=== PATIENT | female | born 1965 | race Caucasian/White ===

== ENCOUNTER → 2018-04-18 | Outpatient (CLI) | payer MEDICARE ==
--- NOTE | 2018-04-18 08:38 | XR ---
EXAMINATION TYPE: XR cervical spine comp DATE OF EXAM: 04/18/2018 COMPARISON: NONE HISTORY: None TECHNIQUE: Four views are submitted. FINDINGS: The odontoid is intact. There are no compression deformities. The prevertebral soft tissue structur es are within normal limits. Hypertrophic degenerative changes at C3/C4 and C5-C6. Loss the normal c ervical lordosis. Foraminal encroachment at multiple levels. IMPRESSION: 1. Multilevel degenerative disc disease. MRI follow-up recommended.
== END | disposition home or self-care (01) ==
LOC: RADXRMAIN 07:40
PROVIDERS: ATTEND Nurse Practitioner Family
DX: M50.31 Other cervical disc degeneration, high cervical region (principal)
CPT/HCPCS: 72050

== ENCOUNTER → 2018-04-26 | Outpatient (CLI) | payer MEDICARE ==
--- NOTE | 2018-04-29 09:30 | MM ---
Reason for exam: screening (asymptomatic). Last mammogram was performed 1 year and 3 months ago. History: Patient is postmenopausal. Family history of breast cancer in mother and breast cancer in maternal grandmother. Benign excisional biopsy of the left breast, March 05, 2000. Physical Findings: A clinical breast exam by your physician is recommended on an annual basis and results should be correlated with mammographic findings. MG 3D Screening Mammo W/Cad Bilateral CC and MLO view(s) were taken. Prior study comparison: February 05, 2017, bilateral MG screening mammo w CAD. August 06, 2015, bilateral MG screening mammo w CAD. The breast tissue is heterogeneously dense. This may lower the sensitivity of mammography. There is a stable right retroareolar mass in the upper outer quadrant. No suspicious abnormality. No significant changes when compared with prior studies. ASSESSMENT: Negative, BI-RAD 1 RECOMMENDATION: Routine screening mammogram of both breasts in 1 year. Manage on a clinical basis with regard to chronic left nipple pain. Diagnostic exam could be per performed in clinically indicated.
== END ==
LOC: RADMAMWWP 13:41
PROVIDERS: ATTEND Family Medicine
DX: Z12.31 Encounter for screening mammogram for malignant neoplasm of breast (principal)
CPT/HCPCS: 77063; 77067

== ENCOUNTER → 2018-05-03 | Outpatient (CLI) | payer MEDICARE ==
--- NOTE | 2018-05-03 08:46 | MR ---
EXAMINATION TYPE: MR cervical spine wo con DATE OF EXAM: 05/03/2018 COMPARISON: 09/03/1999 HISTORY: Neck/jaw pain, headaches, weakness in fingers TECHNIQUE: Multiplanar, multisequence images of the cervical spine were acquired. C2-C3: No evidence for degenerative disc disease. No disc bulge/herniation or protrusion. No Canal stenosis. Foramina are patent bilaterally. C3-C4: There is a moderate broad-based disc bulging or protrusion resulting in compression of thecal sac. Uncovertebral joint hypertrophy is greater on the right resulting in severe right-sided foramina l encroachment and moderate left foraminal encroachment. Findings are similar to the prior exam. Dege nerative disc disease C4-C5: Degenerative disc disease with broad-based disc bulging. Uncovertebral j oint hypertrophy greater on the left facet arthropathy. Mild right foraminal encroachment and moderat e left foraminal encroachment C5-C6: Degenerative disc disease with broad-based disc protrusion. Uncovertebral joint hypertrophy no jossy bilaterally with severe left-sided foraminal encroachment and moderate to severe right-sided fora maximiliano encroachment which may be slightly progressed. Effacement of thecal sac and central canal steno sis noted. C6-C7: No evidence for degenerative disc disease. No disc bulge/herniation or protrusion. No Canal stenosis. Foramina are patent bilaterally. C7-T1: No evidence for degenerative disc disease. No disc bulge/herniation or protrusion. No Canal stenosis. Foramina are patent bilaterally. Cervical segments are intact. There is normal alignment. Cervical spinal cord is of normal signal. Craniovertebral junction relationships are within normal limits. Mucous retention cyst within the m axillary sinus. Loss the normal cervical lordosis noted. IMPRESSION: 1. Mild progression of multilevel degenerative disc disease with straightening of the cervical spine and loss of normal cervical lordosis. 2. Disc protrusions at C3-C4, C4-5 and C5-C6 result in significant bilateral foraminal encroachment a s discussed above. Central stenosis at C5-C6 noted.
== END | disposition home or self-care (01) ==
LOC: RADMRIMAIN 08:08
PROVIDERS: ATTEND Nurse Practitioner Family
DX: M48.02 Spinal stenosis, cervical region (principal); M50.21 Other cervical disc displacement, high cervical region; M50.31 Other cervical disc degeneration, high cervical region
CPT/HCPCS: 72141

== ENCOUNTER 2018-05-16 06:43 | Day surgery (SDC) | payer MEDICARE ==
[2018-05-14 15:57] VITALS: BMI 36.3
[~2018-05-16 06:43] MED LIST: LACTATED RINGERS 1,000 ML IV SCH
[2018-05-16 07:17] VITALS: TEMP 97.2
[2018-05-16] MEDS ORDERED: LIDOCAINE 1% INJ 10MG/ML (20 ML MDV) ONE (07:39)
[2018-05-16] MEDS ORDERED: PROPOFOL 10 MG/ML 20 ML VIAL IV ONE (07:39)
--- NOTE | 2018-05-16 07:46 | P.GSHP ---
History of Present Illness H&P Date: 05/16/18 Chief Complaint: Screening colonoscopy This is a 52-year-old female who presents today for screening colonoscopy. Patient denies a significant GI complaints. Her last colonoscopy was several years ago. She says she had polyps at that time. Past Medical History Past Medical History: COPD, Fibromyalgia, Musculoskeletal Disorder, Skin Disorder, Thyroid Disorder Additional Past Medical History / Comment(s): DDD, NECK PAIN. HX COLON POLYPS. GRANULOMA ANNULARA, ITCHY RAISED SPOTS LOWER LEGS. History of Any Multi-Drug Resistant Organisms: None Reported Past Surgical History: Back Surgery, Breast Surgery, Hysterectomy Additional Past Surgical History / Comment(s): ANAL FISSURE SX. COLONOSCOPY. LT BREAST LUMPECTOMY-BENIGN Past Anesthesia/Blood Transfusion Reactions: No Reported Reaction Smoking Status: Current some day smoker - Past Family History Father Family Medical History: Cancer Additional Family Medical History / Comment(s): LUNG Mother Family Medical History: Cancer Additional Family Medical History / Comment(s): BREAST Medications and Allergies Home Medications Medication Instructions Recorded Confirmed Type Albuterol Inhaler [Ventolin Hfa 1 - 2 puff INHALATION Q6HR PRN 11/15/15 05/16/18 History Inhaler] Levothyroxine Sodium [Synthroid] 125 mcg PO DAILY 11/15/15 05/16/18 History Ibuprofen [Motrin] 800 mg PO TID PRN 05/14/18 05/16/18 History Vitamin D3 (Unknown Dose) 1 tab PO DAILY 05/14/18 History Allergies Allergy/AdvReac Type Severity Reaction Status Date / Time barium iodide Allergy Rash/Hives Verified 05/16/18 07:02 barium sulfate Allergy Rash/Hives Verified 05/16/18 07:02 codeine AdvReac Nausea Verified 05/16/18 07:02 Surgical - Exam Vital Signs Temp Pulse Resp BP Pulse Ox 97.2 F L 90 17 134/82 98 05/16/18 07:11 05/16/18 07:11 05/16/18 07:11 05/16/18 07:11 05/16/18 07:11 - General well developed, well nourished, no distress - Eyes PERRL - ENT normal pinna - Neck no masses - Respiratory normal expansion - Cardiovascular Rhythm: regular - Abdomen Abdomen: soft, non tender Assessment and Plan Assessment: We'll perform screening colonoscopy.
--- NOTE | 2018-05-16 08:01 | P.OP ---
Date of Procedure: 05/16/18 Preoperative Diagnosis: Screening colonoscopy Postoperative Diagnosis: Diverticulosis Procedure(s) Performed: Colonoscopy Anesthesia: MAC Surgeon: Easton Sanchez Pathology: none sent Condition: stable Disposition: PACU Description of Procedure: The patient's placed on the endoscopy table in the lateral position. She received IV sedation. Digital rectal exam was performed which revealed no abnormalities. Flexible colonoscope was then placed patient anus and passed throughout the entire colon. The ileocecal valve was visualized. The cecum, ascending and transverse colon appeared normal. In the descending and sigmoid colon there was mild diverticulosis. There was no evidence of diverticulitis. The scope was then brought back the rectum and this appeared normal. Scope was withdrawn for patient.
[2018-05-16 08:18] VITALS: BP 107/65; PULSE 70; RESP 16
== END 2018-05-16 08:35 | disposition home or self-care (01) ==
LOC: ORWHC2ENDO 06:43
PROVIDERS: ATTEND Surgery
DX: Z12.11 Encounter for screening for malignant neoplasm of colon (principal); K57.30 Diverticulosis of large intestine without perforation or abscess without bleeding; J44.9 Chronic obstructive pulmonary disease, unspecified; F17.210 Nicotine dependence, cigarettes, uncomplicated; M79.7 Fibromyalgia; E07.9 Disorder of thyroid, unspecified; Z88.5 Allergy status to narcotic agent; Z86.010 Personal history of colon polyps; Z79.890 Hormone replacement therapy; Z91.048 Other nonmedicinal substance allergy status
CPT/HCPCS: G0105; J2001; J2704

== ENCOUNTER → 2019-04-29 | Outpatient (CLI) | payer MEDICARE ==
--- NOTE | 2019-04-30 09:05 | MM ---
Reason for exam: screening (asymptomatic). Last mammogram was performed 1 year ago. History: Patient is postmenopausal. Family history of breast cancer in mother and breast cancer in maternal grandmother. Benign excisional biopsy of the left breast, March 05, 2000. Took hormonal contraceptives for 15 years. Physical Findings: A clinical breast exam by your physician is recommended on an annual basis and results should be correlated with mammographic findings. MG 3D Screening Mammo W/Cad Bilateral CC and MLO view(s) were taken. Prior study comparison: April 26, 2018, bilateral MG 3d screening mammo w/cad. February 05, 2017, bilateral MG screening mammo w CAD. There are scattered fibroglandular densities. Finding: There is a typically benign circumscribed oval stable mass in the upper outer quadrant, anterior position of the right breast dating back to 2016. No suspicious abnormality. ASSESSMENT: Benign, BI-RAD 2 RECOMMENDATION: Routine screening mammogram of both breasts in 1 year.
== END | disposition home or self-care (01) ==
LOC: RADMAMWWP 09:45
PROVIDERS: ATTEND Family Medicine
DX: Z12.31 Encounter for screening mammogram for malignant neoplasm of breast (principal)
CPT/HCPCS: 77063; 77067

== ENCOUNTER → 2020-06-29 | Outpatient (CLI) | payer MEDICARE ==
--- NOTE | 2020-06-30 10:46 | MM ---
Reason for exam: screening (asymptomatic). Last mammogram was performed 1 year and 2 months ago. History: Patient is postmenopausal. Family history of breast cancer in mother and breast cancer in maternal grandmother. Benign excisional biopsy of the left breast, March 05, 2000. Took hormonal contraceptives for 15 years. Physical Findings: A clinical breast exam by your physician is recommended on an annual basis and results should be correlated with mammographic findings. MG 3D Screening Mammo W/Cad Bilateral CC and MLO view(s) were taken. Prior study comparison: April 29, 2019, bilateral MG 3d screening mammo w/cad. April 26, 2018, bilateral MG 3d screening mammo w/cad. The breast tissue is heterogeneously dense. This may lower the sensitivity of mammography. There are benign appearing round calcifications bilaterally. There is no discrete abnormality. ASSESSMENT: Benign, BI-RAD 2 RECOMMENDATION: Routine screening mammogram of both breasts in 1 year.
== END | disposition home or self-care (01) ==
LOC: RADMAMWWP 14:33
PROVIDERS: ATTEND Family Medicine
DX: Z12.31 Encounter for screening mammogram for malignant neoplasm of breast (principal); Z80.3 Family history of malignant neoplasm of breast; Z78.0 Asymptomatic menopausal state
CPT/HCPCS: 77063; 77067

== ENCOUNTER → 2021-07-26 | Outpatient (CLI) | payer MEDICARE ==
--- NOTE | 2021-07-28 09:54 | MM ---
Reason for Exam: Screening (asymptomatic). Last screening mammogram was performed 12 month(s) ago. Patient History: Menarche at age 12. First Full-Term at age 20. Hysterectomy at age 38. Postmenopausal. Patient used Hormonal Contraceptives for 15 years. 03/05/2000, Benign Excisional Biopsy on the left side. Maternal grandmother had breast cancer at or over age 50. Mother had breast cancer at or over age 50. Risk Values: Graciela 5 year model risk: 2.8%. NCI Lifetime model risk: 17.3%. Prior Study Comparison: 04/26/2018 Bilateral Screening Mammogram, [facility]. 04/29/2019 Bilateral Screening Mammogram, [facility]. 06/29/2020 Bilateral Screening Mammogram, [facility]. Tissue Density: The breast tissue is heterogeneously dense. This may lower the sensitivity of mammography. Findings: Analyzed By CAD. There are few scattered benign-appearing round calcifications redemonstrated throughout both breasts. There is no suspicious group of microcalcifications or new suspicious mass in either breast. Overall Assessment: Benign, BI-RAD 2 Management: Screening Mammogram of both breasts in 1 year. A clinical breast exam by your physician is recommended on an annual basis and results should be correlated with mammographic findings. Electronically signed and approved by: Cristhian Hernandez M.D.
== END | disposition home or self-care (01) ==
LOC: RADMAMWWP 09:37
PROVIDERS: ATTEND Family Medicine
DX: Z12.31 Encounter for screening mammogram for malignant neoplasm of breast (principal); Z78.0 Asymptomatic menopausal state; Z80.3 Family history of malignant neoplasm of breast
CPT/HCPCS: 77063; 77067

== ENCOUNTER → 2022-05-23 | Outpatient (CLI) | payer MEDICARE ==
--- NOTE | 2022-05-23 08:38 | CT ---
EXAMINATION TYPE: CT chest w con DATE OF EXAM: 05/23/2022 COMPARISON: None HISTORY: Chronic bronchitis, chest pain CT DLP: 408.70 mGycm Automated exposure control for dose reduction was used. CONTRAST: CT scan of the chest is performed with IV Contrast, patient injected with 100 ml mL of Isovue 300. FINDINGS: LUNGS: The lungs are grossly clear, there is no concerning parenchymal mass or nodule identified. T here is no pleural effusion or pneumothorax seen. The tracheobronchial tree is patent. MEDIASTINUM: There are no greater than 1 cm hilar or mediastinal lymph nodes. No pericardial effusi on is seen. Thoracic aorta is of normal caliber. The heart is not enlarged. UPPER ABDOMEN: No significant abnormality appreciated. OTHER: No additional significant abnormality is seen. IMPRESSION: No significant abnormality to account for the patient's symptoms.
== END | disposition home or self-care (01) ==
LOC: RADCTMAIN 07:56
PROVIDERS: ATTEND Family Medicine
DX: J42 Unspecified chronic bronchitis (principal)
CPT/HCPCS: 71260; Q9967

== ENCOUNTER → 2022-07-31 | Outpatient (CLI) | payer MEDICARE ==
--- NOTE | 2022-08-01 20:06 | MM ---
Reason for Exam: Screening (asymptomatic). Last mammogram was performed 1 year(s) and 1 month(s) ago. Patient History: Menarche at age 12. First Full-Term at age 20. Hysterectomy at age 38. Postmenopausal. Patient used Hormonal Contraceptives for 15 years. 03/05/2000, Benign Excisional Biopsy on the left side. Maternal grandmother had breast cancer at or over age 50. Maternal grandmother had breast cancer at or over age 50. Mother had breast cancer at or over age 50. Mother had breast cancer at or over age 50. Risk Values: Graciela 5 year model risk: 2.9%. NCI Lifetime model risk: 16.9%. Prior Study Comparison: 02/05/2017 Bilateral Screening Mammogram, [facility]. 04/26/2018 Bilateral Screening Mammogram, [facility]. 04/29/2019 Bilateral Screening Mammogram, [facility]. 06/29/2020 Bilateral Screening Mammogram, [facility]. 07/26/2021 Bilateral MG 3D screening mammo w/cad, [facility]. Tissue Density: There are scattered fibroglandular densities. Findings: Analyzed By CAD. Chronic nodularity anterior right breast. There is no suspicious group of microcalcifications or new suspicious mass in either breast. Overall Assessment: Benign, BI-RAD 2 Management: Screening Mammogram of both breasts in 1 year. . Patient should continue monthly self-breast exams. A clinical breast exam by your physician is recommended on an annual basis. This exam should not preclude additional follow-up of suspicious palpable abnormalities. Note on Graciela scores and lifetime risk: 1. A Graciela score greater than 3% is considered moderate risk. If this is the case, consider specialist referral to assess eligibility for a risk reducing agent. 2. If overall lifetime risk for the development of breast cancer is 20% or higher, the patient may qualify for future screening with alternating mammogram and breast MRI. Electronically signed and approved by: Brock Stock M.D. Radiologist
== END | disposition home or self-care (01) ==
LOC: RADMAMWWP 10:05
PROVIDERS: ATTEND Family Medicine
DX: Z12.31 Encounter for screening mammogram for malignant neoplasm of breast (principal); Z78.0 Asymptomatic menopausal state; Z80.3 Family history of malignant neoplasm of breast
CPT/HCPCS: 77063; 77067

== ENCOUNTER → 2022-09-26 | Outpatient (CLI) | payer MEDICARE ==
--- NOTE | 2022-09-26 13:12 | CA ---
Exercise Stress Test Report Name: Fabiola Owens Exam Date: 09/26/2022 09:05 Exam Location: [place] Stress Ht (in): 66 Wt (lb): 205 BSA: 2.02 Ordering Phys: Charlie Chowdhury MD Referring Phys: SOLA,, Technologist: Richard Hill Age: 57 Gender: F : 1965 Procedure CPT: Indications: R07.9' R00.2 ICD-10 Codes: Patient History: CHEST PAIN, DIFFICULTY IN BREATHING, PALPITATIONS, ANGINA, PRIOR SMOKER (0.75 PPD X 43 YEARS) COPD Medications: LEVOTHYROXINE, ANORO, ALBUTEROL, MOTRIN, VIT E, VIT D, CALCIUM, WOMEN'S ONE A DAY Meds past 24 hrs: Pretest Chest Pain: STRESS TEST Gustavo Protocol Exercise Duration (min:sec): 03:[address] Depressions (mm): Angina Score: Viera Score: Resting HR (bpm): 76 Peak HR (bpm): 145 Resting BP (mmHg): 104 / 83 Peak BP (mmHg): 178 / 84 MPHR: 162 Target HR: 138 % MPHR: 90 METS: 5.6 Total Dose: Peak Dose: Atropine: Double Product: 06557 BP Response: Stress Termination: TARGET HR REACHED/MAX EXERTION Stress Symptoms: DIFFICULTY IN BREATHING Stress Summary: ECG ANALYSIS Resting ECG: Stress ECG: CONCLUSIONS Patient underwent exercise stress EKG with a Gustavo protocol treadmill stress test. Patient exercised into Stage 2 for a total of 3 minutes and 36 seconds reaching a total of 5.6 METS. Patient's maximum heart rate was 145 which represented 89 % age- predicted maximum heart rate. Stress EKG findings: At baseline patient's EKG showed normal sinus rhythm, normal axis, no significant ST or T wave abnormalities. At peak exercise, EKG showed no significant change from baseline. Conclusions: 1. Normal EKG response to exercise without evidence of inducible ischemia. 2. Poor exercise capacity. Dr. Ramy Bush DO (Electronically Signed) Final Date: 26 September 2022 13:10
== END | disposition home or self-care (01) ==
LOC: RADNMMAIN 08:27
PROVIDERS: ATTEND Family Medicine
DX: R07.9 Chest pain, unspecified (principal); R00.2 Palpitations
CPT/HCPCS: 93017

== ENCOUNTER 2023-05-25 08:42 | Day surgery (SDC) | payer MEDICARE ==
[2023-05-22 09:23] VITALS: BMI 33.0
[~2023-05-25 08:42] MED LIST changes: +ALPRAZolam 0.5 MG TAB PO PRN; +ASPIRIN 325 MG TAB PO STA; +HEPARIN SODIUM,PORCINE (1 ML) 2,500 UNIT in SODIUM CHLORIDE 0.9% 250 ML IRRIGATION PRN; +HEPARIN SODIUM,PORCINE 10,000 UNIT in SODIUM CHLORIDE 0.9% 1,000 ML IRRIGATION PRN; -LACTATED RINGERS 1,000 ML IV SCH; +NITROGLYCERIN SL TABS 0.4 MG TAB SUBLINGUAL PRN; +SODIUM CHLORIDE 0.9% 1,000 ML in EMPTY BAG 1 BAG IV SCH
[2023-05-25] MEDS: SODIUM CHLORIDE 0.9% 1,000 ML IV ONE (08:45)
[2023-05-25] MEDS: ALPRAZolam 0.25 MG TAB PO PRN (09:14)
[2023-05-25 09:16] LABS: Basophils # (A) 0.1 k/uL (0-0.2); Basophils % (A) 1 %; Eosinophils # (A) 0.3 k/uL (0-0.7); Eosinophils % (A) 3 %; HCT 41.2 % (34.0-46.0); HGB 13.7 gm/dL (11.4-16.0); Lymphocytes # (A) 3.7 k/uL (1.0-4.8); Lymphocytes % (A) 37 %; MCH 29.4 pg (25.0-35.0); MCHC 33.2 g/dL (31.0-37.0); MCV 88.7 fL (80.0-100.0); Mean Platelet Volume 7.3; Monocytes # (A) 0.5 k/uL (0-1.0); Monocytes % (A) 5 %; Neutrophils % (A) 51 %; Platelet Count 347 k/uL (150-450); RBC 4.64 m/uL (3.80-5.40); RDW 13.2 % (11.5-15.5); WBC 9.8 k/uL (3.8-10.6)
[2023-05-25 09:31] LABS: African American GFR (CKD) >90 (>60 ml/min/1.73 sqM); Anion Gap 8 mmol/L; Blood Urea Nitrogen 16 mg/dL (7-17); Calcium 9.1 mg/dL (8.4-10.2); Carbon Dioxide 22 mmol/L (22-30); Chloride 109 mmol/L (98-107); Glucose 104 mg/dL (74-99); Non-African American GFR(CKD) >90 (>60 ml/min/1.73 sqM); Potassium 4.2 mmol/L (3.5-5.1); Sodium 139 mmol/L (137-145)
[2023-05-25 09:42] VITALS: RESP 18; TEMP 98.1
[2023-05-25] MEDS ORDERED: fentaNYL (PF) 50 MCG/ML 2 ML AMP ONE (10:16)
[2023-05-25] MEDS ORDERED: HEPARIN SODIUM 1,000 UN/ML (10ML VL) ONE (10:16)
[2023-05-25] MEDS: MIDAZOLAM 2 MG/2 ML VIAL IVP ONE (10:30)
[2023-05-25] MEDS: LIDOCAINE 1% INJ 10MG/ML (20 ML MDV) SQ ONE (10:30)
[2023-05-25] MEDS: fentaNYL (PF) 50 MCG/ML 2 ML AMP IVP ONE (10:30)
[2023-05-25] MEDS: VERAPAMIL SYRINGE (5 MG/10 ML) INTRAARTER ONE (10:34)
[2023-05-25] MEDS: HEPARIN SODIUM 1,000 UN/ML (10ML VL) IV ONE (10:38)
[2023-05-25] MEDS: IOPAMIDOL-370 100ML BTL INJ ONE (10:44)
[2023-05-25] MEDS ORDERED: RX INFO: IV CONTRAST WAS GIVEN 1 EACH MISC MISCELLANE PRN (12:06)
--- NOTE | 2023-05-25 12:06 | P.CARDCATH ---
Date of Procedure: 05/25/23 Description of Procedure: DIAGNOSTIC CORONARY ANGIOGRAPHY and LEFT HEART CATH REPORT PROCEDURES PERFORMED: Left heart catheterization Selective coronary angiography Moderate conscious sedation 15 mins [Ultrasound assisted] Right radial access INDICATION: Substernal chest pressure symptoms, history of smoking, positive Lexiscan nuclear stress test showing anteroapical reversible perfusion defect. CONSENT: I have explained the procedural steps of above-mentioned procedures in layman's terms to the patient. I discussed the risks (including but not limited to stroke, emergent vascular or cardiac surgery or ), benefits and alternative therapies for the above-mentioned procedure. I discussed the risks of sedation/analgesia and blood product administration (if indicated). The patient has indicated understanding and acceptance of these risks. Conscious Sedation: Patient's ECG, heart rate, blood pressure, pulse oximetry were monitored throughout the duration of procedure under my direct supervision. 1 mg Versed and [50] mg Fentanyl were used for induction of moderate conscious sedation. Total duration of moderate concious sedation 15 minutes. PROCEDURE: After explaining the risks, benefits and alternatives of the above mentioned procedures in detail to the patient, informed consent was obtained. Patient was taken to the catheterization lab, prepped and draped in usual sterile fashion using universal precuations. Barbow and andreia test were performed to confirm adequate perfusion to fingers. Ultrasound was used to identify the radial artery. 1% lidocaine was infiltrated over the right radial artery. A 6-[place]izen [place] sheath was placed and secured in the right radial artery using modified Seldinger technique. The sheath was flushed and 5 mg verapamil was administered intra-arterially. J tipped wire was advanced under fluoroscopic guidance. Once the wire tip reached aortic root 5500 units of IV heparin was given. Over the wire JR4 diagnostic catheter was advanced. The wire in place the catheter was manipulated to cross the aortic valve and entered into LV under fluoroscopy guidance. The wire was removed and the catheter was flushed. LV pressures were obtained and pullback was performed under fluoroscopy. Catheter was manipulated to selectively engage the right coronary ostium. Right coronary angiography was performed in different angiographic projections. The JR4 diagnostic catheter was exchanged for a JL 3.5 diagnostic catheter over the J-wire. The wire was removed, catheter was flushed and manipulated under fluoroscopy to selectively engaged the left coronary ostium. Left coronary angioplasty was performed in different angiographic projections. Catheter was removed over the wire. Radial sheath was flushed. The right radial sheath was removed and a TR band was placed with excellent patent hemostasis was achieved. The patient tolerated the procedure well. Patient was transported back to the post catheterization holding area in stable condition. Angiographic images were reviewed in detail. HEMODYNAMICS: Aortic Pressure: 101/58 mmHg. LV pressure: 104/2 mmHg. LVEDP 13 mmHg. There was no significant gradient across the aortic valve. SELECTIVE CORONARY ARTERIOGRAPHY: LEFT MAIN: The left main is a large caliber vessel which bifurcates into the LAD and circumflex. Left main appears angiographically normal. LEFT ANTERIOR DESCENDING CORONARY ARTERY: LAD is a large caliber vessel which wraps around to the apex. Proximal LAD appears angiographically normal. Mid LAD appears angiographically normal. Distal LAD appears angiographically normal. Mid LAD gives rise to a diagonal branch which appears in graphically normal LEFT CIRCUMFLEX CORONARY ARTERY: It is nondominant vessel. Left circumflex is a moderate caliber vessel. It appears angiographically normal. RIGHT CORONARY ARTERY: Dominant vessel. The right coronary artery is a large caliber vessel which gives PDA and PLV branch. It appears angiographically normal. IMPRESSION: Angiographically normal coronary arteries as described above. Normal left sided filling pressures PLAN: LDL 112 after Crestor 10 mg. Increase Crestor to 20 mg. Discontinue aspirin. 150 cc fluids for 3 hours Discharge home in 3 hours Follow-up in the office in 1-2 weeks. Findings were discussed with patient's daughter Lynda Everett over phone Performing Physician Lui Cleveland MD, FACC, RPVI Thank you for allowing [facility] to participate in this patient's care. Feel free to reach out in case of any followup questions.
[2023-05-25] MEDS ORDERED: SODIUM CHLORIDE 0.9% 1,000 ML IV SCH (12:15)
[2023-05-25 13:30] VITALS: BP 113/64; PULSE 76
== END 2023-05-25 13:52 | disposition home or self-care (01) ==
LOC: CATHCVL 08:42
PROVIDERS: ATTEND Student in an Organized Health Care Education/Training Program
DX: R07.89 Other chest pain (principal); Z79.82 Long term (current) use of aspirin; F17.210 Nicotine dependence, cigarettes, uncomplicated; Z79.899 Other long term (current) drug therapy; Z82.49 Family history of ischemic heart disease and other diseases of the circulatory system
CPT/HCPCS: 93458; 76937; 80048; 85025; C1769 ×2; C1894; J2250; J2001; J3010; J1644; Q9967

== ENCOUNTER → 2023-08-03 | Outpatient (CLI) | payer MEDICARE ==
--- NOTE | 2023-08-03 18:52 | MM ---
Reason for Exam: Screening (asymptomatic). Last screening mammogram was performed 12 month(s) ago. Patient History: Menarche at age 12. First Full-Term at age 20. Hysterectomy at age 38. Postmenopausal. Patient used Hormonal Contraceptives for 15 years. 03/05/2000, Benign Excisional Biopsy on the left side. Maternal grandmother had breast cancer at or over age 50. Maternal grandmother had breast cancer at or over age 50. Mother had breast cancer at or over age 50. Mother had breast cancer at or over age 50. Risk Values: Graciela 5 year model risk: 3.0%. NCI Lifetime model risk: 16.6%. Prior Study Comparison: 06/29/2020 Bilateral Screening Mammogram, [facility]. 07/26/2021 Bilateral MG 3D screening mammo w/cad, [facility]. 07/31/2022 Bilateral MG 3D screening mammo w/cad, [facility]. Tissue Density: There are scattered areas of fibroglandular density. Findings: Analyzed By CAD. There is no suspicious group of microcalcifications or new suspicious mass in either breast. Overall Assessment: Negative, BI-RAD 1 Management: Screening Mammogram of both breasts in 1 year. See note below in regards to patient's increased 5 year Graciela score. Patient should continue monthly self-breast exams. A clinical breast exam by your physician is recommended on an annual basis. This exam should not preclude additional follow-up of suspicious palpable abnormalities. Note on Graciela scores and lifetime risk: 1. A Graciela score greater than 3% is considered moderate risk. If this is the case, consider specialist referral to assess eligibility for a risk reducing agent. 2. If overall lifetime risk for the development of breast cancer is 20% or higher, the patient may qualify for future screening with alternating mammogram and breast MRI. Electronically signed and approved by: Brock Stock M.D. Radiologist
== END | disposition home or self-care (01) ==
LOC: RADMAMWWP 08:19
PROVIDERS: ATTEND Family Medicine
DX: Z12.31 Encounter for screening mammogram for malignant neoplasm of breast (principal); Z78.0 Asymptomatic menopausal state; Z80.3 Family history of malignant neoplasm of breast
CPT/HCPCS: 77063; 77067

== ENCOUNTER → 2023-08-15 | Outpatient (CLI) | payer MEDICARE ==
--- NOTE | 2023-08-16 01:11 | CTL ---
EXAMINATION TYPE: CT Low Dose Lung DATE OF EXAM ORDERED: 08/15/2023 HISTORY: Current smoker, 43 pack year history. Lung cancer screening CT DLP: 87.[address] CTDI: 2.40 mGy Automated exposure control for dose reduction was used. SCREENING VISIT: First screening visit COMPARISON: CT chest 05/23/2022 TECHNIQUE: Low dose computed tomography scan was performed through the chest at 1 mm thick sections a nd reconstructed images in multiple planes at 1 mm and [address] DIAGNOSTIC QUALITY: Satisfactory FINDINGS: Nodules: Stable Pleural-based left lower lobe 5 mm pulmonary nodule (series 6, image 41). LUNGS: COPD: Severity: Mild Fibrosis: Severity: None Lymph nodes: None Other findings: None RIGHT PLEURAL SPACE: Effusion: None Calcification: None Thickening: None Pneumothorax: None LEFT PLEURAL SPACE: Effusion: None Calcification: None Thickening: None Pneumothorax: None HEART: Heart Size: Normal Coronary Calcification: None Pericardial Effusion: None OTHER FINDINGS: Upper abdomen: Diverticulosis of the splenic flexure. Bony thorax: None Supraclavicular region: None Other: None IMPRESSION: Stable left lower lobe 5 mm pulmonary nodule. No new or enlarging pulmonary nodules. CT LUNG RAD AND CT CHEST RECOMMENDATION: Lung-Rad 2 Benign Appearance or Behavior: Continue annual sc reening with LDCT in 12 months. S Modifier (other clinically significant findings): None
== END | disposition home or self-care (01) ==
LOC: RADCTMAIN 08:43
PROVIDERS: ATTEND Family Medicine
DX: Z12.2 Encounter for screening for malignant neoplasm of respiratory organs (principal); R91.1 Solitary pulmonary nodule; F17.210 Nicotine dependence, cigarettes, uncomplicated
CPT/HCPCS: 71271

== ENCOUNTER 2024-06-25 19:21 | Emergency (ER) | payer MEDICARE ==
[2024-06-25 19:42] VITALS: RESP 18; TEMP 97.9
[2024-06-25 22:04] LABS: Basophils % (A) 0.9 %; Eosinophils # (A) 0.34 10*3/uL (0.04-0.35); Eosinophils % (A) 3.1 %; HCT 37.7 % (37.2-46.3); HGB 13.2 g/dL (12.0-15.0); Lymphocytes # (A) 2.74 10*3/uL (0.90-5.00); Lymphocytes % (A) 24.7 %; MCH 29.5 pg (27.0-32.0); MCV 84.2 fL (80.0-97.0); Mean Platelet Volume 9.1 fL (9.5-12.2); Monocytes # (A) 0.86 10*3/uL (0.20-1.00); Monocytes % (A) 7.7 %; Neutrophils # (A) 7.04 10*3/uL (1.80-7.70); Neutrophils % (A) 63.3 %; Platelet Count 320 10*3/uL (140-440); RBC 4.48 10*6/uL (4.10-5.20); RDW 13.2 % (11.5-14.5); WBC 11.11 10*3/uL (4.50-10.00)
[2024-06-25 22:14] LABS: Prothrombin Time 10.8 sec (10.0-12.5)
[2024-06-25 22:17] LABS: ALT 101 U/L (4-34); AST 48 U/L (14-36); African American GFR (CKD) >90 (>60 ml/min/1.73 sqM); Albumin 3.8 g/dL (3.5-5.0); Alkaline Phosphatase 79 U/L (38-126); Amylase 33 U/L (30-110); Anion Gap 9 mmol/L; Blood Urea Nitrogen 19 mg/dL (7-17); Calcium 10.8 mg/dL (8.4-10.2); Carbon Dioxide 23 mmol/L (22-30); Chloride 105 mmol/L (98-107); Glucose 109 mg/dL (74-99); Lipase 65 U/L (23-300); Non-African American GFR(CKD) 80 (>60 ml/min/1.73 sqM); Potassium 4.1 mmol/L (3.5-5.1); Sodium 137 mmol/L (137-145); Total Bilirubin 0.3 mg/dL (0.2-1.3); Total Protein 5.9 g/dL (6.3-8.2)
[2024-06-25] MEDS: KETOROLAC 15 MG/ML 1 ML VIAL IVP STA (23:01)
[2024-06-25] MEDS: SODIUM CHLORIDE 0.9% 1,000 ML IV ONE (23:03)
--- NOTE | 2024-06-25 23:04 | US ---
EXAMINATION TYPE: US abdomen limited DATE OF EXAM: 06/25/2024 COMPARISON: NONE CLINICAL INDICATION: Female, 58 years old with history of epigastric pain; pt states epigastric pain and nausea TECHNIQUE: Grayscale and color Doppler imaging of the right upper quadrant was performed. FINDINGS: EXAM MEASUREMENTS: Liver Length: 16.6 cm Gallbladder Wall: 0.3 cm CBD: obscured by shadowing from gb Right Kidney: 9.7 x 4.1 x 4.2 cm SUPERVISOR DATA PROCESSING NOTES: slightly limited due to overlying bowel gas and body habitus Pancreas: Obscured by bowel gas Liver: slightly increased echogenicity, slightly enlarged Gallbladder: hydropic, full of echogenic foci of various sizes. Evidence for sonographic Black's sign: no CBD: obscured by shadowing from gallbladder Right Kidney: wnl IMPRESSION: 1. Hydropic gallbladder filled with gallstones. No evidence for wall thickening or positive sonograp hic Black sign. 2. Hepatic steatosis [facility], , 06/25/2024 11:01 PM
[2024-06-25 23:17] LABS: Appearance,Urine Clear (Clear); Bacteria,Urine Rare /hpf; Bilirubin,Urine Negative (Negative); Blood,Urine Small (Negative); Budding Yeast,Urine Rare /hpf; Color,Urine Colorless; Glucose,Urine (UA) Negative (Negative); Hyaline Casts,Urine 4 /lpf (0-2); Ketones,Urine Negative (Negative); Leukocyte Esterase,Urine Trace (Negative); Mucus,Urine Rare /hpf; Nitrite,Urine Negative (Negative); PH, Urine 5.5 (5.0-8.0); Protein,Urine Negative (Negative); RBC,Urine 2 /hpf (0-5); Specific Gravity,Urine 1.023 (1.001-1.035); Squamous Epithelial Cell,Urine 3 /hpf (0-4); Urobilinogen,Urine <2.0 mg/dL (<2.0); WBC,Urine 3 /hpf (0-5)
--- NOTE | 2024-06-25 23:34 | ED ---
Abdominal Pain HPI - General Chief Complaint: Abdominal Pain Stated Complaint: Nausea/Heartburn, Stomach Pressure Time Seen by Provider: 06/25/24 20:31 Source: patient Mode of arrival: ambulatory - History of Present Illness Initial Comments: 58-year-old female presenting with chief complaint of abdominal pain. Patient has been having epigastric pain for the last 10 days. She states that the pain is constant but she does have episodes of worsening pain. There are times when eating improves the pain, she does not notice any aggravating factors. She has been taking Pepto-Bismol which does not help. She has also been taking ibuprofen which does help somewhat. States that she has been taking ibuprofen 800 daily for years. No blood present in the stool. No melena. She admits to nausea with no vomiting. No fever. Surgical history includes hysterectomy. She states that the pain does radiate up into her chest at times. No difficulty breathing. No URI-like symptoms. No lower extremity swelling. - Related Data Home Medications Medication Instructions Recorded Confirmed Albuterol Inhaler [Ventolin Hfa 1 - 2 puff INHALATION Q6HR PRN 11/15/15 05/25/23 Inhaler] Ibuprofen [Motrin] 800 mg PO TID PRN 05/14/18 05/25/23 Calcium Carbonate [Calcium] 600 mg PO DAILY 05/22/23 05/25/23 Cholecalciferol [Vitamin D3 (10 10 mcg PO DAILY 05/22/23 05/25/23 Mcg = 400 Iu)] Fluticasone/Umeclidin/Vilanter 1 inhalation INHALATION DAILY 05/22/23 05/25/23 [Trelegy Ellipta 100-62.5-25] Levothyroxine Sodium [Synthroid] 175 mcg PO DAILY 05/22/23 05/25/23 Multivit-Min/Iron Fum/Folic AC 1 each PO DAILY 05/22/23 05/25/23 [One-A-Day Women's Complete Tab] Vitamin E-Es 670 mg PO DAILY 05/22/23 05/25/23 Previous Rx's Medication Instructions Recorded Rosuvastatin [Crestor] 20 mg PO HS 30 Days #30 tab 05/25/23 Ondansetron Odt [Zofran Odt] 4 mg PO Q8HR PRN #20 tab 06/26/24 Allergies Allergy/AdvReac Type Severity Reaction Status Date / Time barium iodide Allergy Rash/Hives Verified 05/25/23 09:10 barium sulfate Allergy Rash/Hives Verified 05/25/23 09:10 codeine AdvReac Nausea Verified 05/25/23 09:10 Review of Systems ROS Statement: Those systems with pertinent positive or pertinent negative responses have been documented in the HPI. ROS Other: All systems not noted in ROS Statement are negative. Past Medical History Past Medical History: COPD, Fibromyalgia, Hyperlipidemia, Thyroid Disorder Additional Past Medical History / Comment(s): DDD, NECK PAIN. HX COLON POLYPS. GRANULOMA ANNULARA, ITCHY RAISED SPOTS LOWER LEGS/ARMS. RECENT HEART PALPITATIONS WITH PAIN IN CHEST UP TO JAW. History of Any Multi-Drug Resistant Organisms: None Reported Past Surgical History: Back Surgery, Breast Surgery, Hysterectomy Additional Past Surgical History / Comment(s): ANAL FISSURE SX. LT BREAST LUMPECTOMY-BENIGN. COLONOSCOPY Past Anesthesia/Blood Transfusion Reactions: No Reported Reaction Past Psychological History: Anxiety, Depression Smoking Status: Former smoker - Past Family History Father Family Medical History: Cancer Additional Family Medical History / Comment(s): LUNG Mother Family Medical History: Cancer Additional Family Medical History / Comment(s): BREAST General Exam Limitations: no limitations General appearance: alert, in no apparent distress Head exam: Present: atraumatic, normocephalic, normal inspection Eye exam: Present: normal appearance, EOMI Neck exam: Present: normal inspection. Absent: meningismus Respiratory exam: Present: normal lung sounds bilaterally. Absent: respiratory distress, wheezes, rales, rhonchi, stridor Cardiovascular Exam: Present: regular rate, normal rhythm, normal heart sounds. Absent: systolic murmur, diastolic murmur, rubs, gallop, clicks GI/Abdominal exam: Present: soft, tenderness (upper abdomen). Absent: distended, guarding, rebound, rigid Neurological exam: Present: alert, oriented X3 Psychiatric exam: Present: normal affect, normal mood Skin exam: Present: warm, dry, normal color Course Vital Signs 06/25/24 06/25/24 06/25/24 19:37 20:32 23:56 Temperature 97.9 F 97.9 F Pulse Rate 74 74 Pulse Rate [ 76 Bilateral Supine Clean Up Worker] Respiratory 18 18 Rate Blood Pressure 178/98 153/90 O2 Sat by Pulse 95 94 L Oximetry Medical Decision Making - Medical Decision Making Was pt. sent in by a medical professional or institution (, PA, LASER SPECIALIST, urgent care, hospital, or intermediate...) When possible be specific @ -No Did you speak to anyone other than the patient for history (EMS, parent, family, police, friend...)? What history was obtained from this source @ -No Did you review nursing and triage notes (agree or disagree)? Why? @ -I reviewed and agree with nursing and triage notes Were old charts reviewed (outside hosp., previous admission, EMS record, old EKG, old radiological studies, urgent care reports/EKG's, intermediate records)? Report findings @ -No old charts were reviewed Differential Diagnosis (chest pain, altered mental status, abdominal pain women, abdominal pain men, vaginal bleeding, weakness, fever, dyspnea, syncope, headache, dizziness, GI bleed, back pain, seizure, CVA, palpatations, mental health, musculoskeletal)? @ -MDM Differential Abdominal Pain Women: Appendicitis, Cholecystitis, diverticulosis, ischemic bowel, pancreatitis, hepatitis, UTI, gastroenteritis, AAA, incarcerated hernia, bowel obstruction, constipation, inflammatory bowel, hepatitis, peptic ulcer disease, splenic infarction, perforated viscus, vulvitis, ovarian torsion, PID, kidney stone, placenta abruption... This is not meant to be an all-inclusive list EKG interpreted by me (3pts min.). @ -EKG shows sinus rhythm ventricular rate 67. [place] interval 190. QRS 87. QT 349. QTc 364 X-rays interpreted by me (1pt min.). @ -None done CT interpreted by me (1pt min.). @ -None done U/S interpreted by me (1pt. min.). @ -Ultrasound shows hydropic gallbladder filled with gallstones. No evidence for wall thickening or positive sonographic Black sign. Hepatic steatosis. What testing was considered but not performed or refused? (CT, X-rays, U/S, labs)? Why? @ -None What meds were considered but not given or refused? Why? @ -None Did you discuss the management of the patient with other professionals (professionals i.e. , PA, LASER SPECIALIST, lab, RT, psych nurse, health and social care teacher, lithograph press feeder, teacher, property portfolio officer, nurse case manager)? Give summary @ -No Was smoking cessation discussed for >3mins.? @ -No Was critical care preformed (if so, how long)? @ -No Were there social determinants of health that impacted care today? How? (Homelessness, low income, unemployed, alcoholism, drug addiction, transportation, low edu. Level, literacy, decrease access to med. care, detention, rehab)? @ -No Was there de-escalation of care discussed even if they declined (Discuss DNR or withdrawal of care, Hospice)? DNR status @ -No What co-morbidities impacted this encounter? (DM, HTN, Smoking, COPD, CAD, Cancer, CVA, ARF, Chemo, Hep., AIDS, mental health diagnosis, sleep apnea, morbid obesity)? @ -None Was patient admitted / discharged? Hospital course, mention meds given and route, prescriptions, significant lab abnormalities, going to OR and other pertinent info. @ -58-year-old female presenting with chief complaint of epigastric pain for 10 days. History and physical examination are conducted. Patient is given Toradol for pain. White count 11.11. Mild transaminitis. Negative troponin EKG shows no acute ischemic changes. Amylase and lipase are WNL. Urine shows no infection. Ultrasound is positive for hydropic gallbladder with gallstones with no evidence of cholecystitis. Patient is educated on today's findings. She will be provided with Zofran for home. She does not want any pain medication outside of Motrin at home. She will follow-up with general surgery. Follow-up with PCP. Report back to ER with any new or worsening symptoms. Discussed return parameters and answered all questions. Patient conveyed verbal understanding and agreed to the plan. I discussed this case in detail with my attending Dr. Shearer Undiagnosed new problem with uncertain prognosis? @ -No Drug Therapy requiring intensive monitoring for toxicity (Heparin, Nitro, Insulin, Cardizem)? @ -No Were any procedures done? @ -No Diagnosis/symptom? @ -Gallstones Acute, or Chronic, or Acute on Chronic? @ -Acute Uncomplicated (without systemic symptoms) or Complicated (systemic symptoms)? @ -uncomplicated Side effects of treatment? @ -No Exacerbation, Progression, or Severe Exacerbation? @ -No Poses a threat to life or bodily function? How? (Chest pain, USA, IA, pneumonia, PE, COPD, DKA, ARF, appy, cholecystitis, CVA, Diverticulitis, Homicidal, Suicidal, threat to staff... and all critical care pts) @ -Low likelihood - Lab Data Result diagrams: 06/25/24 21:47 06/25/24 21:47 Lab Results 06/25/24 06/25/24 06/25/24 Range/Units 21:47 21:47 21:47 WBC 11.11 H (4.50-10.00) 10*3/uL RBC 4.48 (4.10-5.20) 10*6/uL Hgb 13.2 (12.0-15.0) g/dL Hct 37.7 (37.2-46.3) % MCV 84.2 (80.0-97.0) fL MCH 29.5 (27.0-32.0) pg MCHC 35.0 (32.0-37.0) g/dL Plt Count 320 (140-440) 10*3/uL MPV 9.1 L (9.5-12.2) fL Immature Gran % (Auto) 0.3 % Neutrophils % 63.3 % Lymphocytes % 24.7 % Monocytes % 7.7 % Eosinophils % 3.1 % Basophils % 0.9 % Immature Gran # 0.03 (0.00-0.04) 10*3/uL Neutrophils # 7.04 (1.80-7.70) 10*3/uL Lymphocytes # 2.74 (0.90-5.00) 10*3/uL Monocytes # 0.86 (0.20-1.00) 10*3/uL Eosinophils # 0.34 (0.04-0.35) 10*3/uL Basophils # 0.10 (0.00-0.10) 10*3/uL PT 10.8 (10.0-12.5) sec INR 1.0 (<1.2) APTT 24.0 (22.0-30.0) sec Sodium 137 (137-145) mmol/L Potassium 4.1 (3.5-5.1) mmol/L Chloride 105 (98-107) mmol/L Carbon Dioxide 23 (22-30) mmol/L Anion Gap 9 mmol/L BUN 19 H (7-17) mg/dL Creatinine 0.81 (0.52-1.04) mg/dL Est GFR (CKD-EPI)AfAm >90 (>60 ml/min/1.73 sqM) Est GFR (CKD-EPI)NonAf 80 (>60 ml/min/1.73 sqM) Glucose 109 H (74-99) mg/dL Plasma Lactic Acid [place] (0.7-2.0) mmol/L Calcium 10.8 H (8.4-10.2) mg/dL Total Bilirubin 0.3 (0.2-1.3) mg/dL AST 48 H (14-36) U/L ALT 101 H (4-34) U/L Alkaline Phosphatase 79 (38-126) U/L Troponin I (0.000-0.034) ng/mL Total Protein 5.9 L (6.3-8.2) g/dL Albumin 3.8 (3.5-5.0) g/dL Amylase 33 (30-110) U/L Lipase 65 (23-300) U/L Urine Color Urine Appearance (Clear) Urine pH (5.0-8.0) Ur Specific [place] (1.001-1.035) Urine Protein (Negative) Urine Glucose (UA) (Negative) Urine Ketones (Negative) Urine Blood (Negative) Urine Nitrite (Negative) Urine Bilirubin (Negative) Urine Urobilinogen (<2.0) mg/dL Ur Leukocyte Esterase (Negative) Urine RBC (0-5) /hpf Urine WBC (0-5) /hpf Ur Squamous Epith Cells (0-4) /hpf Urine Bacteria (None) /hpf Hyaline Casts (0-2) /lpf Urine Mucus (None) /hpf Urine Yeast (Budding) (None) /hpf 06/25/24 06/25/24 06/25/24 Range/Units 21:47 21:47 22:55 WBC (4.50-10.00) 10*3/uL RBC (4.10-5.20) 10*6/uL Hgb (12.0-15.0) g/dL Hct (37.2-46.3) % MCV (80.0-97.0) fL MCH (27.0-32.0) pg MCHC (32.0-37.0) g/dL Plt Count (140-440) 10*3/uL MPV (9.5-12.2) fL Immature Gran % (Auto) % Neutrophils % % Lymphocytes % % Monocytes % % Eosinophils % % Basophils % % Immature Gran # (0.00-0.04) 10*3/uL Neutrophils # (1.80-7.70) 10*3/uL Lymphocytes # (0.90-5.00) 10*3/uL Monocytes # (0.20-1.00) 10*3/uL Eosinophils # (0.04-0.35) 10*3/uL Basophils # (0.00-0.10) 10*3/uL PT (10.0-12.5) sec INR (<1.2) APTT (22.0-30.0) sec Sodium (137-145) mmol/L Potassium (3.5-5.1) mmol/L Chloride (98-107) mmol/L Carbon Dioxide (22-30) mmol/L Anion Gap mmol/L BUN (7-17) mg/dL Creatinine (0.52-1.04) mg/dL Est GFR (CKD-EPI)AfAm (>60 ml/min/1.73 sqM) Est GFR (CKD-EPI)NonAf (>60 ml/min/1.73 sqM) Glucose (74-99) mg/dL Plasma Lactic Acid [place] 1.0 (0.7-2.0) mmol/L Calcium (8.4-10.2) mg/dL Total Bilirubin (0.2-1.3) mg/dL AST (14-36) U/L ALT (4-34) U/L Alkaline Phosphatase (38-126) U/L Troponin I <0.012 (0.000-0.034) ng/mL Total Protein (6.3-8.2) g/dL Albumin (3.5-5.0) g/dL Amylase (30-110) U/L Lipase (23-300) U/L Urine Color Colorless Urine Appearance Clear (Clear) Urine pH 5.5 (5.0-8.0) Ur Specific [place] 1.023 (1.001-1.035) Urine Protein Negative (Negative) Urine Glucose (UA) Negative (Negative) Urine Ketones Negative (Negative) Urine Blood Small H (Negative) Urine Nitrite Negative (Negative) Urine Bilirubin Negative (Negative) Urine Urobilinogen <2.0 (<2.0) mg/dL Ur Leukocyte Esterase Trace H (Negative) Urine RBC 2 (0-5) /hpf Urine WBC 3 (0-5) /hpf Ur Squamous Epith Cells 3 (0-4) /hpf Urine Bacteria Rare H (None) /hpf Hyaline Casts 4 H (0-2) /lpf Urine Mucus Rare H (None) /hpf Urine Yeast (Budding) Rare H (None) /hpf Disposition Clinical Impression: Gallstones Disposition: HOME SELF-CARE Condition: Good Instructions (If sedation given, give patient instructions): Gallstones (ED) Additional Instructions: Follow-up with PCP and general surgery. Report back to ER with any new or worsening symptoms. Prescriptions: Ondansetron Odt [Zofran Odt] 4 mg PO Q8HR PRN #20 tab PRN Reason: Nausea Is patient prescribed a controlled substance at d/c from ED?: No Referrals: Charlie Chowdhury MD [Primary Care Provider] - 1-2 days Sanjana Salmeron MD [STAFF PHYSICIAN] - 1-2 days Norma Reeves DO [Doctor of Osteopathic Medicine] - 1-2 days Time of Disposition: 23:34
[2024-06-25] MEDS: ONDANSETRON 4 MG/2 ML VIAL IVP STA (23:38)
[2024-06-25 23:59] VITALS: BP 153/90; PULSE 74
== END 2024-06-26 00:15 | disposition home or self-care (01) ==
LOC: EC 19:21
DX: K80.20 Calculus of gallbladder without cholecystitis without obstruction (principal); Z87.891 Personal history of nicotine dependence; Z88.5 Allergy status to narcotic agent; Z88.8 Allergy status to other drugs, medicaments and biological substances
CPT/HCPCS: 36415; 93005; 80053; 82150; 83605; 83690; 84484; 85025; 85610; 85730; 81001; 76705; 99284; 96374; 96375; 96361; J2405; J1885

== ENCOUNTER → 2024-08-25 | Outpatient (CLI) | payer MEDICARE ==
--- NOTE | 2024-08-25 16:57 | MM ---
Reason for Exam: Screening (asymptomatic). Last screening mammogram was performed 12 month(s) ago. Patient History: Menarche at age 12. First Full-Term at age 20. Hysterectomy at age 38. Postmenopausal. Patient used Hormonal Contraceptives for 15 years. 03/05/2000, Benign Excisional Biopsy on the left side. Maternal grandmother had breast cancer at or over age 50. Maternal grandmother had breast cancer at or over age 50. Mother had breast cancer at or over age 50. Mother had breast cancer at or over age 50. Risk Values: Graciela 5 year model risk: 3.1%. NCI Lifetime model risk: 16.2%. Prior Study Comparison: 02/05/2017 Bilateral Screening Mammogram, LOCATED WITHIN [facility]. 04/26/2018 Bilateral Screening Mammogram, LOCATED WITHIN [facility]. 04/29/2019 Bilateral Screening Mammogram, LOCATED WITHIN [facility]. 06/29/2020 Bilateral Screening Mammogram, LOCATED WITHIN [facility]. 07/26/2021 Bilateral MG 3D screening mammo w/cad, LOCATED WITHIN [facility]. 07/31/2022 Bilateral MG 3D screening mammo w/cad, LOCATED WITHIN [facility]. 08/03/2023 Bilateral MG 3D screening mammo w/cad, LOCATED WITHIN [facility]. Tissue Density: There are scattered areas of fibroglandular density. Findings: Analyzed By CAD. Grouped calcifications anterior right breast are unchanged. Areas of asymmetric density are also unchanged. There is no suspicious group of microcalcifications or new suspicious mass in either breast. Overall Assessment: Benign, BI-RAD 2 Management: Screening Mammogram of both breasts in 1 year. See note below in regards to the patient's increased 5 year Graciela score. Patient should continue monthly self-breast exams. A clinical breast exam by your physician is recommended on an annual basis. This exam should not preclude additional follow-up of suspicious palpable abnormalities. Note on Graciela scores and lifetime risk: 1. A Graciela score greater than 3% is considered moderate risk. If this is the case, consider specialist referral to assess eligibility for a risk reducing agent. 2. If overall lifetime risk for the development of breast cancer is 20% or higher, the patient may qualify for future screening with alternating mammogram and breast MRI. [facility], Workstation: [employer], 08/25/2024 4:54 PM. Electronically signed and approved by: Brock Stock M.D. Radiologist
== END | disposition home or self-care (01) ==
LOC: RADMAMWWP 08:56
PROVIDERS: ATTEND Family Medicine
DX: Z12.31 Encounter for screening mammogram for malignant neoplasm of breast (principal); R92.323 Mammographic fibroglandular density, bilateral breasts; Z78.0 Asymptomatic menopausal state; Z80.3 Family history of malignant neoplasm of breast; Z92.0 Personal history of contraception
CPT/HCPCS: 77063; 77067

== ENCOUNTER 2024-08-28 11:00 | Day surgery (SDC) | payer MEDICARE ==
[2024-08-26 15:48] VITALS: BMI 33.9
[~2024-08-28 11:00] MED LIST changes: -ALPRAZolam 0.5 MG TAB PO PRN; -ASPIRIN 325 MG TAB PO STA; -HEPARIN SODIUM,PORCINE (1 ML) 2,500 UNIT in SODIUM CHLORIDE 0.9% 250 ML IRRIGATION PRN; -HEPARIN SODIUM,PORCINE 10,000 UNIT in SODIUM CHLORIDE 0.9% 1,000 ML IRRIGATION PRN; +LIDOCAINE 1% (10MG/ML) FOR IV START INTRADERMA PRN; -NITROGLYCERIN SL TABS 0.4 MG TAB SUBLINGUAL PRN; +ONDANSETRON 4 MG/2 ML VIAL IVP ONE; -SODIUM CHLORIDE 0.9% 1,000 ML in EMPTY BAG 1 BAG IV SCH
[2024-08-28] MEDS ORDERED: INDOCYANINE GREEN 25 MG VIAL IV STA (11:30)
--- NOTE | 2024-08-28 11:31 | P.GSHP ---
History of Present Illness H&P Date: 08/28/24 CHIEF COMPLAINT: Cholecystitis HISTORY OF PRESENT ILLNESS: The patient is a 59-year-old female who presents with history of epigastric including right upper quadrant abdominal pain. She underwent diagnostic studies for her gallbladder. Separately her clinical picture was consistent with cholecystitis. Now she presents for surgical intervention. PAST MEDICAL HISTORY: Please see list PAST SURGICAL HISTORY: Please see list MEDICATIONS: Please see list ALLERGIES: Please see list SOCIAL HISTORY: Please see list FAMILY HISTORY: Please see list REVIEW OF ORGAN SYSTEMS: CONSTITUTIONAL: No reports of fevers or chills. HEENT: Denies any troubles with the vision or hearing. ENDOCRINE: No reports of hypothyroidism. No diabetes. RESPIRATORY: No recent pneumonias. CARDIOVASCULAR: Denies chest pain or palpitations GI: No blood in stools or constipation. MUSCULOSKELETAL: Has occasional joint pain including back pain. NEURO: No seizure disorders or headaches. No recent stroke. PSYCH: No depression or suicidal ideation. GENITOURINARY: No active blood in urine. No urinary hesitancy. HEMATOLOGIC: No personal or family history of DVTs or pulmonary emboli. SKIN: No skin cancer. PHYSICAL EXAM: VITAL SIGNS: Afebrile vital signs stable GENERAL: Well-developed pleasant in no acute distress. HEENT: No scleral icterus. Extraocular movements grossly intact. Moist buccal mucosa. NECK: Supple without lymphadenopathy. CHEST: Unlabored respirations. Equal bilateral excursions. CARDIOVASCULAR: Regular rate regular rhythm rhythm. Distal 2+ pulses. ABDOMEN: Soft, nondistended. Tender along the epigastrium and right upper quadrant. MUSCULOSKELETAL: No clubbing, cyanosis, or edema. NEURO: Cranial nerves II to XII within normal limits. No focal or lateralizing signs. PSYCH: Alert and oriented to person, place and time. SKIN: Well-perfused good skin turgor. ASSESSMENT: 1. Epigastric and right upper quadrant abdominal pain 2. Chronic cholecystitis 3. Symptomatic gallstones. PLAN: 1. Will need a robotic cholecystectomy possible open. Benefits and risks were described. 2. Heparin for DVT prophylaxis 5000 units. 3. Antibiotic prophylaxis. 4. CBC and CMP on day of procedure 5. Non-narcotic pre and post op pain management reviewed. 6. Indocyanine green for biliary imaging. Past Medical History Past Medical History: COPD, Fibromyalgia, Hyperlipidemia, Musculoskeletal Disorder, Skin Disorder, Thyroid Disorder Additional Past Medical History / Comment(s): DDD, RIGHT SHOULDER, NECK AND BACK PAIN. HX COLON POLYPS. GRANULOMA ANNULARA, ITCHY RAISED SPOTS LOWER LEGS/ARMS FROM THYROID. HX HEART PALPITATIONS. CARPAL TUNNEL - BILATERAL. STATES RECENT TOOTH ABCESS DRAINED, HAS LOOSE BOTTOM FRONT TOOTH - NEEDS EXTRACTION, STATES DR HUA AWARE AND INSTRUCTED TO WAIT TO HAVE TOOTH REMOVED. History of Any Multi-Drug Resistant Organisms: None Reported Past Surgical History: Back Surgery, Breast Surgery, Hysterectomy Additional Past Surgical History / Comment(s): ANAL FISSURE REPAIR, LEFT BREAST LUMPECTOMY-BENIGN, COLONOSCOPY. Past Anesthesia/Blood Transfusion Reactions: No Reported Reaction Smoking Status: Former smoker - Past Family History Father Family Medical History: Cancer Additional Family Medical History / Comment(s): LUNG CANCER. Mother Family Medical History: Cancer Additional Family Medical History / Comment(s): BREAST CANCER X2. Medications and Allergies Home Medications Medication Instructions Recorded Confirmed Type Albuterol Inhaler [Ventolin Hfa 1 - 2 puff INHALATION Q6HR PRN 11/15/15 08/26/24 History Inhaler] Ibuprofen [Motrin] 800 mg PO TID PRN 05/14/18 08/26/24 History Fluticasone/Umeclidin/Vilanter 1 inhalation INHALATION DAILY 05/22/23 08/26/24 History [Trelegy Ellipta 100-62.5-25] Levothyroxine Sodium [Synthroid] 175 mcg PO QAM 05/22/23 08/26/24 History Cholecalciferol [Vitamin D3 (25 25 mcg PO DAILY 08/26/24 08/26/24 History Mcg = 1000 Iu)] Ferrous Sulfate [Feosol] 325 mg PO DAILY 08/26/24 08/26/24 History Magnesium 1,200 mg PO DAILY 08/26/24 08/26/24 History Potassium Gluconate 99 mg PO DAILY 08/26/24 08/26/24 History Rosuvastatin [Crestor] 20 mg PO QAM 08/26/24 08/26/24 History Allergies Allergy/AdvReac Type Severity Reaction Status Date / Time barium iodide Allergy Rash/Hives Verified 08/28/24 11:18 barium sulfate Allergy Rash/Hives Verified 08/28/24 11:18 codeine AdvReac Nausea Verified 08/28/24 11:18
[2024-08-28] MEDS: IV FLUID CONTINUATION 1,000 ML IV ONE (11:35)
[2024-08-28] MEDS: LACTATED RINGERS 1,000 ML IV SCH (11:35)
[2024-08-28] MEDS: ACETAMINOPHEN TAB 500 MG TAB PO PRN (11:42)
[2024-08-28] MEDS: HEPARIN SODIUM,PORCINE 5,000 UNIT/ML 1 ML VIAL SQ PRN (11:43)
[2024-08-28] MEDS: ONDANSETRON 4 MG/2 ML VIAL IVP PRN (11:43)
[2024-08-28] MEDS: DEXAMETHASONE SOD PHOSPHATE 4 MG/ML 1 ML VIAL IV ONE (11:43)
[2024-08-28 11:47] LABS: Basophils # (A) 0.11 10*3/uL (0.00-0.10); Basophils % (A) 1.3 %; Eosinophils # (A) 0.21 10*3/uL (0.04-0.35); Eosinophils % (A) 2.4 %; HCT 39.2 % (37.2-46.3); HGB 13.5 g/dL (12.0-15.0); Lymphocytes # (A) 3.20 10*3/uL (0.90-5.00); Lymphocytes % (A) 37.2 %; MCH 28.5 pg (27.0-32.0); MCHC 34.4 g/dL (32.0-37.0); MCV 82.7 fL (80.0-97.0); Monocytes # (A) 0.64 10*3/uL (0.20-1.00); Monocytes % (A) 7.4 %; Neutrophils # (A) 4.43 10*3/uL (1.80-7.70); Neutrophils % (A) 51.5 %; Platelet Count 299 10*3/uL (140-440); RBC 4.74 10*6/uL (4.10-5.20); RDW 13.4 % (11.5-14.5); WBC 8.61 10*3/uL (4.50-10.00)
[2024-08-28] MEDS ORDERED: fentaNYL (PF) 50 MCG/ML 2 ML AMP ONE (12:08)
[2024-08-28] MEDS ORDERED: NEOSTIGMINE 1 MG/ML 10 ML VIAL ONE (12:08)
[2024-08-28] MEDS ORDERED: SUCCINYLCHOLINE CHLORIDE 200 MG/10 ML VIAL IV ONE (12:08)
[2024-08-28] MEDS ORDERED: ROCURONIUM 10 MG/ML (5 ML VIAL) IV ONE (12:08)
[2024-08-28] MEDS ORDERED: GLYCOPYRROLATE 0.2 MG/ML 2 ML VIAL ONE (12:08)
[2024-08-28] MEDS ORDERED: HYDROmorphone (PF) 1 MG/ML ONE (12:08)
[2024-08-28] MEDS ORDERED: PROPOFOL 10 MG/ML 20 ML VIAL IV ONE (12:08)
[2024-08-28] MEDS ORDERED: LIDOCAINE 1% INJ 10MG/ML (20 ML MDV) ONE (12:08)
[2024-08-28 12:09] LABS: African American GFR (CKD) >90 (>60 ml/min/1.73 sqM); Anion Gap 11 mmol/L; Blood Urea Nitrogen 20 mg/dL (7-17); Calcium 9.6 mg/dL (8.4-10.2); Carbon Dioxide 22 mmol/L (22-30); Chloride 107 mmol/L (98-107); Glucose 92 mg/dL (74-99); Non-African American GFR(CKD) 87 (>60 ml/min/1.73 sqM); Potassium 4.1 mmol/L (3.5-5.1); Sodium 140 mmol/L (137-145)
[2024-08-28] MEDS: LIDOCAINE 1%-EPI 1:100,000 20 ML VIAL SQ ONE (12:37)
[2024-08-28 14:23] VITALS: TEMP 97.3
[2024-08-28] MEDS: droPERidol 2.5 MG/ML VIAL IVP ONE (14:23)
--- NOTE | 2024-08-28 14:30 | P.OP ---
Date of Procedure: 08/28/24 Description of Procedure: SURGEON: SANJANA SALMERON MD PREOPERATIVE DIAGNOSES: 1. Symptomatic gallstones 2. Chronic obstructive pulmonary disease 3. Hyperlipidemia 4. Hypothyroidism 5. Iron deficiency anemia 6. Fibromyalgia 7. Generalized anxiety disorder 8. Depressive disorder 9. Tooth abscess, present on admission 10. Obesity excess calories, BMI 34.1 POSTOPERATIVE DIAGNOSES: 1. Acute on chronic cholecystitis with hydrops cholecystitis due to cystic duct obstruction from gallstone 2. Chronic obstructive pulmonary disease 3. Hyperlipidemia 4. Hypothyroidism 5. Iron deficiency anemia 6. Fibromyalgia 7. Generalized anxiety disorder 8. Depressive disorder 9. Tooth abscess, present on admission 10. Obesity excess calories, BMI 34.1 OPERATION: Robotic-assisted da Stella Xi laparoscopic cholecystectomy, multiport with FIREFLY ESTIMATED BLOOD LOSS: 20 mL. SPECIMENS REMOVED: Gallbladder. COMPLICATIONS: None. OPERATIVE FINDINGS: 1. Moderate distended gallbladder measuring 13 cm, 200% larger than standard gallbladder requiring additional dissection. 2. Multiple large gallstones greater than 6 greater than 8 mm in size 3. Clear bile consistent with hydrops cholecystitis. 4. No moderate hepatomegaly or fatty liver disease INDICATIONS: The patient is a 59-year-old female who presents with symptomatic gallstones. Robotic assisted laparoscopic approach was described. Benefits and risks of the procedure including but not limited to bleeding, infection, injury to the biliary tree was described. Informed consent was obtained. DESCRIPTION OF PROCEDURE: Patient was brought to the operating room, placed in supine position. After general induction, the abdomen had been prepped and draped in standard sterile fashion. The robotic da Stella XI system was primed. After a timeout protocol was performed, the patient had been prepped and draped in standard sterile fashion. The patient was injected with indocyanine green. A 5 mm 0 degrees laparoscopic trocar entry was performed along the left upper quadrant. The abdomen insufflated to 15 mmHg pressure which was tolerated well. Diagnostic laparoscopy demonstrated no injury to bowel viscera or mesentery. The liver surface was unremarkable. The gallbladder was moderately long and distended and stiff in appearance. Next, two 8 mm robotic ports were placed along the right upper abdomen. The camera 8-mm port was maintained along the epigastrium. Another 8 mm port was placed along the left upper abdominal wall after exchanging the 5 mm port. Please note that the ports were placed at least 10 to 15 cm away from the target anatomy of the gallbladder. The robot was docked along the left lateral abdomen. The patient was repositioned in reverse Trendelenburg position. Using a grasper for arm 1, a grasper for arm 4, including hook cautery for arm 3, the robotic system was docked and primed as described. Instruments were interchanged by the paperhanger assistant including hook cautery, Bovie cautery and clip appliers. I had sat at the console. The gallbladder was extremely long and distended and stiff. Gallbladder was greater than 200% incised in standard gallbladder. Careful dissection was performed with safe removal of the gallbladder. Next attention was brought to the infundibulum and cystic structures. The infundibulum and cystic duct were dissected free from surrounding tissues. The cystic duct was isolated. FIREFLY was used to identify the cystic artery and cystic structures. Indocyanine green confirmed acute cholecystitis with nonvisualization of the gallbladder. A critical view of safety was obtained. Large PLASTIC clips were used throughout the entire case. Using a clip hotel superintendent, 3 clips were placed at the junction of the infundibulum and cystic duct. The cystic duct was divided between clips. Next, the cystic artery was similarly clipped and cauterized. Total of 4 clips were remained in hepatic fossa. No blood or bile was identified from the clips. Electro-Bovie cautery was used to remove the gallbladder from the hepatic fossa. Hemostasis was checked and found to be adequate. The robot was undocked. I re-scrubbed into the case. Using a 15 mm Endo Catch bag via the left upper quadrant incision, the specimen was removed from the abdominal cavity. All pneumoperitoneum instruments were evacuated from the abdominal cavity. The incisions were reapproximated using 4-0 Monocryl in an interrupted subcuticular fashion. Fascial defects were less than 8 mm in size. Please note along the trocar sites, local anesthetic was placed as a field block prior to insertion of all instruments. Liquid glue was applied to the skin. At the end of the procedure needle, sponge, and instrument count had been verified correct by the surgical services coordinator. The patient was transferred to postanesthesia care unit in stable condition. Intraoperative films were shared with the patient's family. Plan - Discharge Summary Discharge Rx Participant: No New Discharge Prescriptions: New Ibuprofen 800 mg PO Q8H #30 tab Cyclobenzaprine [Flexeril] 10 mg PO TID #30 tab Acetaminophen Tab [Tylenol Tab] 1,000 mg PO Q6HR PRN #30 tablet PRN Reason: Pain Continue Albuterol Inhaler [Ventolin Hfa Inhaler] 1 - 2 puff INHALATION Q6HR PRN PRN Reason: COPD Ibuprofen [Motrin] 800 mg PO TID PRN PRN Reason: Pain Levothyroxine Sodium [Synthroid] 175 mcg PO QAM Fluticasone/Umeclidin/Vilanter [Trelegy Ellipta 100-62.5-25] 1 inhalation INHALATION DAILY Potassium Gluconate 99 mg PO DAILY Rosuvastatin [Crestor] 20 mg PO QAM Ferrous Sulfate [Iron (65 MG Elemental)] 325 mg PO DAILY Cholecalciferol [Vitamin D3 (25 Mcg = 1000 Iu)] 25 mcg PO DAILY Magnesium 1,200 mg PO DAILY Discharge Medication List Albuterol Inhaler [Ventolin Hfa Inhaler] 1 - 2 puff INHALATION Q6HR PRN 11/15/15 [History] Ibuprofen [Motrin] 800 mg PO TID PRN 05/14/18 [History] Fluticasone/Umeclidin/Vilanter [Trelegy Ellipta 100-62.5-25] 1 inhalation INHALATION DAILY 05/22/23 [History] Levothyroxine Sodium [Synthroid] 175 mcg PO QAM 05/22/23 [History] Cholecalciferol [Vitamin D3 (25 Mcg = 1000 Iu)] 25 mcg PO DAILY 08/26/24 [History] Ferrous Sulfate [Iron (65 MG Elemental)] 325 mg PO DAILY 08/26/24 [History] Magnesium 1,200 mg PO DAILY 08/26/24 [History] Potassium Gluconate 99 mg PO DAILY 08/26/24 [History] Rosuvastatin [Crestor] 20 mg PO QAM 08/26/24 [History] Acetaminophen Tab [Tylenol Tab] 1,000 mg PO Q6HR PRN #30 tablet 08/28/24 [Rx] Cyclobenzaprine [Flexeril] 10 mg PO TID #30 tab 08/28/24 [Rx] Ibuprofen 800 mg PO Q8H #30 tab 08/28/24 [Rx] Follow up Appointment(s)/Referral(s): Sanjana Salmeron MD [STAFF PHYSICIAN] - 09/02/24 6:20 pm Patient Instructions/Handouts: Laparoscopic Cholecystectomy (DC), Low Fat Diet (DC) Activity/Diet/Wound Care/Special Instructions: TELEHEALTH - DR WILL CALL YOU BETWEEN 9 am to 8 pm NO LONG DRIVES OR AIRPLANE RIDES OVER 90 MINUTES FOR THE NEXT 2 WEEKS, 09/11/2024, DUE TO HIGH RISK OF PULMONARY EMBOLISM/DVTs May drive in 24hr, after recovery from anesthesia Recommend low-fat diet for the next 2 days. No lifting over 10 pounds in 2 weeks until 09/11/2024, May shower. No bath tub soaks for two weeks until 09/11/2024, Diet as tolerated. Use Tylenol, simethicone and ibuprofen or Aleve scheduled for the next 24-48 hours for best pain relief. Use ice along incisions for today to prevent swelling. Discharge Disposition: HOME SELF-CARE
[2024-08-28] MEDS: fentaNYL (PF) 50 MCG/ML 2 ML AMP IV PRN (14:34)
[2024-08-28 14:50] LABS: ALT 24.0 U/L (4-34); AST 27.0 U/L (14-36)
[2024-08-28 15:23] VITALS: RESP 16
[2024-08-28 16:17] VITALS: BP 158/79; PULSE 77
== END 2024-08-28 16:32 | disposition home or self-care (01) ==
LOC: OR 11:00
PROVIDERS: ATTEND Surgery Plastic and Reconstructive Surgery
DX: K80.12 Calculus of gallbladder with acute and chronic cholecystitis without obstruction (principal); K04.7 Periapical abscess without sinus; J44.9 Chronic obstructive pulmonary disease, unspecified; E78.5 Hyperlipidemia, unspecified; E03.9 Hypothyroidism, unspecified; D50.9 Iron deficiency anemia, unspecified; F41.1 Generalized anxiety disorder; F32.A Depression, unspecified; E66.9 Obesity, unspecified; M79.7 Fibromyalgia; Z68.34 Body mass index [BMI] 34.0-34.9, adult; Z86.0100 Personal history of colon polyps, unspecified; Z90.710 Acquired absence of both cervix and uterus; Z87.891 Personal history of nicotine dependence; Z80.1 Family history of malignant neoplasm of trachea, bronchus and lung; Z80.3 Family history of malignant neoplasm of breast; Z88.5 Allergy status to narcotic agent; Z79.890 Hormone replacement therapy; Z79.51 Long term (current) use of inhaled steroids; Z79.899 Other long term (current) drug therapy
CPT/HCPCS: 47562; 88304; 80048; 82247; 84450; 84460; 85025; J0330; J1644; J1100; J2710; J0690; J2405; J2003; J3010; J1171; J2704; J1596; J1790

== ENCOUNTER 2024-09-17 14:01 | Emergency (ER) | payer MEDICARE ==
[2024-09-17] MEDS: HYDROmorphone 0.5 MG/0.5 ML SYRINGE IVP STA (14:42)
[2024-09-17] MEDS: KETOROLAC 15 MG/ML 1 ML VIAL IVP STA (14:42)
[2024-09-17 14:47] LABS: Basophils # (A) 0.16 10*3/uL (0.00-0.10); Basophils % (A) 1.8 %; Eosinophils # (A) 0.29 10*3/uL (0.04-0.35); Eosinophils % (A) 3.2 %; HCT 37.2 % (37.2-46.3); HGB 12.8 g/dL (12.0-15.0); Lymphocytes # (A) 3.76 10*3/uL (0.90-5.00); Lymphocytes % (A) 41.5 %; MCH 28.9 pg (27.0-32.0); MCHC 34.4 g/dL (32.0-37.0); MCV 84.0 fL (80.0-97.0); Monocytes # (A) 0.84 10*3/uL (0.20-1.00); Monocytes % (A) 9.3 %; Neutrophils # (A) 4.00 10*3/uL (1.80-7.70); Neutrophils % (A) 44.1 %; Platelet Count 458 10*3/uL (140-440); RBC 4.43 10*6/uL (4.10-5.20); RDW 13.7 % (11.5-14.5); WBC 9.06 10*3/uL (4.50-10.00)
[2024-09-17 15:04] LABS: ALT 30 U/L (4-34); AST 28 U/L (14-36); African American GFR (CKD) >90 (>60 ml/min/1.73 sqM); Albumin 4.3 g/dL (3.5-5.0); Alkaline Phosphatase 56 U/L (38-126); Amylase 48 U/L (30-110); Anion Gap 10 mmol/L; Blood Urea Nitrogen 20 mg/dL (7-17); Calcium 9.5 mg/dL (8.4-10.2); Carbon Dioxide 25 mmol/L (22-30); Chloride 104 mmol/L (98-107); Glucose 95 mg/dL (74-99); Lipase 1026 U/L (23-300); Non-African American GFR(CKD) 87 (>60 ml/min/1.73 sqM); Potassium 4.5 mmol/L (3.5-5.1); Sodium 139 mmol/L (137-145); Total Protein 6.6 g/dL (6.3-8.2)
--- NOTE | 2024-09-17 16:06 | CT ---
EXAMINATION TYPE: CT abdomen pelvis w con CT DLP: 1593.1 mGycm, Automated exposure control for dose reduction was used. DATE OF EXAM: 09/17/2024 3:56 PM COMPARISON: Abdominal ultrasound 05/29/2024 CLINICAL INDICATION:Female, 59 years old with history of abdominal pain; umbilical pain. recent GB re moval sx TECHNIQUE: Standard CT of the abdomen and pelvis following the administration of 100 cc of Isovue 3 00 IV contrast material. Coronal and sagittal reformats were performed. FINDINGS: LOWER CHEST: Unremarkable ABDOMEN LIVER: Couple of hypodense foci which are too small to characterize but likely represent cysts. GALLBLADDER AND BILE DUCTS: The gallbladder is surgically absent. No biliary ductal dilatation. No si gnificant fluid or stranding changes within the gallbladder fossa. PANCREAS: Unremarkable. SPLEEN: Unremarkable. ADRENAL GLANDS: Unremarkable. KIDNEYS AND URETERS: No evidence of hydronephrosis or renal calculus. The kidneys enhance symmetrical ly. Contrast is demonstrated within both collecting systems on the delayed phase. PELVIS BLADDER: Underdistended limiting evaluation. REPRODUCTIVE: The uterus is surgically absent. ABDOMEN & PELVIS STOMACH AND BOWEL: Stomach and duodenum are unremarkable. Distal colonic scattered diverticula withou t evidence for acute diverticulitis. The appendix is within normal limits. No focal bowel wall thicke mikal or surrounding inflammatory changes identified. No evidence of bowel obstruction. PERITONEUM: No evidence of pneumoperitoneum or free fluid. VASCULATURE: Mild atherosclerotic calcifications are present throughout the abdominal aorta and its b ranches. No evidence of aortic aneurysm. MUSCULOSKELETAL: No acute osseous abnormalities. Postsurgical changes with laminectomy at L4-L5. Mode rate multilevel degenerative disc disease of the lower lumbar spine. LYMPH NODES: No gross evidence for lymphadenopathy. SOFT TISSUE/ABDOMINAL WALL: Postsurgical changes within the anterior wall subcutaneous tissues from r ecent thickening with fat stranding. No fluid collection. No evidence for hernia. IMPRESSION: 1. No CT evidence for acute abdominal/pelvic process. 2. Postsurgical changes from recent cholecystectomy without evidence for abscess/fluid collection. 3. Colonic diverticulosis without evidence for acute diverticulitis. [facility], , 09/17/2024 4:03 PM
--- NOTE | 2024-09-17 16:58 | US ---
EXAMINATION TYPE: US gallbladder DATE OF EXAM: 09/17/2024 COMPARISON: CT abdomen pelvis 09/17/2024, abdominal ultrasound 06/25/2024 CLINICAL INDICATION: Female, 59 years old with history of Right upper quadrant abdominal pain; Pain TECHNIQUE: Grayscale and color Doppler imaging of the right upper quadrant was performed. FINDINGS: EXAM MEASUREMENTS: Liver Length: 17.2 cm Gallbladder Wall: Surgically absent CBD: .3 cm Right Kidney: 10.4 x 3.9 x 3.8 cm LOCKER ROOM ATTENDANT NOTES: Pancreas: Obscured by bowel gas Liver: wnl Gallbladder: Surgically absent CBD: wnl Right Kidney: No hydronephrosis or masses seen Pancreas is obscured by overlying bowel gas. Gallbladder is surgically absent. No suspicious fluid wi thin the gallbladder fossa. Common bile duct is within normal limits. Right kidney demonstrate no hyd ronephrosis, shadowing calculus or solid mass. No abnormality identified within the soft tissues in t he patient's region of pain near umbilicus. IMPRESSION: 1. No ultrasound evidence for acute process. 2. Postcholecystectomy changes. [facility], , 09/17/2024 4:56 PM
--- NOTE | 2024-09-17 18:01 | ED ---
General Adult HPI - General Chief complaint: Abdominal Pain Stated complaint: Abd pain Time Seen by Provider: 09/17/24 14:15 Source: patient, RN notes reviewed, old records reviewed Mode of arrival: ambulatory Limitations: no limitations - History of Present Illness Initial comments: This is a 59-year-old female who presents to the emergency department postcholecystectomy by 3 weeks. Patient comes in stating she is having increasing abdominal pain and was told to come to the hospital to be evaluated because the pain is getting worse. Patient denies any problems with eating patient denies any nausea vomiting or diarrhea. Patient [place] any fever chills. Patient states for the first 10 days her abdomen seem to be getting better but lately it has been getting slowly worse. - Related Data Home Medications Medication Instructions Recorded Confirmed Albuterol Inhaler [Ventolin Hfa 1 - 2 puff INHALATION Q6HR PRN 11/15/15 08/28/24 Inhaler] Ibuprofen [Motrin] 800 mg PO TID PRN 05/14/18 08/28/24 Fluticasone/Umeclidin/Vilanter 1 inhalation INHALATION DAILY 05/22/23 08/28/24 [Trelegy Ellipta 100-62.5-25] Levothyroxine Sodium [Synthroid] 175 mcg PO QAM 05/22/23 08/28/24 Cholecalciferol [Vitamin D3 (25 25 mcg PO DAILY 08/26/24 08/28/24 Mcg = 1000 Iu)] Ferrous Sulfate [Iron (65 MG 325 mg PO DAILY 08/26/24 08/28/24 Elemental)] Magnesium 1,200 mg PO DAILY 08/26/24 08/28/24 Potassium Gluconate 99 mg PO DAILY 08/26/24 08/28/24 Rosuvastatin [Crestor] 20 mg PO QAM 08/26/24 08/28/24 Previous Rx's Medication Instructions Recorded Acetaminophen Tab [Tylenol Tab] 1,000 mg PO Q6HR PRN #30 tablet 08/28/24 Cyclobenzaprine [Flexeril] 10 mg PO TID #30 tab 08/28/24 Ibuprofen 800 mg PO Q8H #30 tab 08/28/24 HYDROcodone/APAP 5-325MG [[place] 1 tab PO Q6HR PRN 3 Days #12 tab 09/17/24 5-325] Allergies Allergy/AdvReac Type Severity Reaction Status Date / Time barium iodide Allergy Rash/Hives Verified 09/17/24 14:08 barium sulfate Allergy Rash/Hives Verified 09/17/24 14:08 codeine AdvReac Nausea Verified 09/17/24 14:08 Review of Systems ROS Statement: Those systems with pertinent positive or pertinent negative responses have been documented in the HPI. ROS Other: All systems not noted in ROS Statement are negative. Past Medical History Past Medical History: COPD, Fibromyalgia, Hyperlipidemia, Musculoskeletal Disorder, Skin Disorder, Thyroid Disorder Additional Past Medical History / Comment(s): DDD, RIGHT SHOULDER, NECK AND BACK PAIN. HX COLON POLYPS. GRANULOMA ANNULARA, ITCHY RAISED SPOTS LOWER LEGS/ARMS FROM THYROID. HX HEART PALPITATIONS. CARPAL TUNNEL - BILATERAL. STATES RECENT TOOTH ABCESS DRAINED, HAS LOOSE BOTTOM FRONT TOOTH - NEEDS EXTRACTION, STATES DR SALMERON AWARE AND INSTRUCTED TO WAIT TO HAVE TOOTH REMOVED. History of Any Multi-Drug Resistant Organisms: None Reported Past Surgical History: Back Surgery, Breast Surgery, Hysterectomy Additional Past Surgical History / Comment(s): ANAL FISSURE REPAIR, LEFT BREAST LUMPECTOMY-BENIGN, COLONOSCOPY. Past Anesthesia/Blood Transfusion Reactions: No Reported Reaction Past Psychological History: Anxiety, Depression Smoking Status: Former smoker Past Alcohol Use History: None Reported Past Drug Use History: Marijuana - Past Family History Father Family Medical History: Cancer Additional Family Medical History / Comment(s): LUNG CANCER. Mother Family Medical History: Cancer Additional Family Medical History / Comment(s): BREAST CANCER X2. General Exam - General Exam Comments Initial Comments: GENERAL: Patient is well-developed and well-nourished. Patient is nontoxic and well-hydrated and is in mild distress. ENT: Neck is soft and supple. No significant lymphadenopathy is noted. Oropharynx is clear. Moist mucous membranes. Neck has full range of motion without eliciting any pain. EYES: The sclera were anicteric and conjunctiva were pink and moist. Extraocular movements were intact and pupils were equal round and reactive to light. Eyelids were unremarkable. PULMONARY: Unlabored respirations. Good breath sounds bilaterally. No audible rales rhonchi or wheezing was noted. CARDIOVASCULAR: There is a regular rate and rhythm without any murmurs gallops or rubs. ABDOMEN: Patient has tenderness in the mid abdomen SKIN: Skin is clear with no lesions or rashes and otherwise unremarkable. NEUROLOGIC: Patient is alert and oriented x3. Cranial nerves II through XII are grossly intact. Motor and sensory are also intact. Normal speech, volume and content. Symmetrical smile. MUSCULOSKELETAL: Normal extremities with adequate strength and full range of motion. No lower extremity swelling or edema. No calf tenderness. LYMPHATICS: No significant lymphadenopathy is noted PSYCHIATRIC: Normal psychiatric evaluation. Limitations: no limitations Course Vital Signs 09/17/24 14:05 Temperature 97.9 F Pulse Rate 89 Respiratory 15 Rate Blood Pressure 134/85 O2 Sat by Pulse 97 Oximetry Medical Decision Making - Medical Decision Making Was pt. sent in by a medical professional or institution (, MARIAMA, COMMUNITY RECREATION COORDINATOR, urgent care, hospital, or detention...) When possible be specific @ -No Did you speak to anyone other than the patient for history (EMS, parent, family, police, friend...)? What history was obtained from this source @ -No Did you review nursing and triage notes (agree or disagree)? Why? @ -I reviewed and agree with nursing and triage notes Were old charts reviewed (outside hosp., previous admission, EMS record, old EKG, old radiological studies, urgent care reports/EKG's, detention records)? Report findings @ -No old charts were reviewed Differential Diagnosis? @ -Differential Abdominal Pain Women: Appendicitis, Cholecystitis, diverticulosis, ischemic bowel, pancreatitis, hepatitis, UTI, gastroenteritis, AAA, incarcerated hernia, bowel obstruction, constipation, inflammatory bowel, hepatitis, peptic ulcer disease, splenic infarction, perforated viscus, vulvitis, ovarian torsion, PID, kidney stone, placenta abruption, this is not meant to be an all-inclusive list EKG interpreted by me (3pts min.). @ -As above X-rays interpreted by me (1pt min.). @ -None done CT interpreted by me (1pt min.). @ -CT abdomen pelvis shows no acute abnormality U/S interpreted by me (1pt. min.). @ -None done What testing was considered but not performed or refused? (CT, X-rays, U/S, labs)? Why? @ -None What meds were considered but not given or refused? Why? @ -None Did you discuss the management of the patient with other professionals (professionals i.e. , MARIAMA, COMMUNITY RECREATION COORDINATOR, lab, RT, psych nurse, social services assistant, coil winder, teacher, information assurance officer, director case)? Give summary @ -I spoke with Dr. Salmeron and she came down and saw the patient and patient and Jaron discussed her going home and patient was happy to try a clear liquid drive. 2 to 3 days at home and she will follow-up with Dr. Chowdhury Was smoking cessation discussed for >3mins.? @ -No Was critical care preformed (if so, how long)? @ -No Were there social determinants of health that impacted care today? How? (Homelessness, low income, unemployed, alcoholism, drug addiction, transportation, low edu. Level, literacy, decrease access to med. care, alf, rehab)? @ -No Was there de-escalation of care discussed even if they declined (Discuss DNR or withdrawal of care, Hospice)? DNR status @ -No What co-morbidities impacted this encounter? (DM, HTN, Smoking, COPD, CAD, Cancer, CVA, ARF, Chemo, Hep., AIDS, mental health diagnosis, sleep apnea, morbid obesity)? @ -None Was patient admitted / discharged? Hospital course, mention meds given and route, prescriptions, significant lab abnormalities, going to OR and other pertinent info. @ -Hospital course Undiagnosed new problem with uncertain prognosis? @ -No Drug Therapy requiring intensive monitoring for toxicity (Heparin, Nitro, Insulin, Cardizem)? @ -No Were any procedures done? @ -No Diagnosis/sympt pancreatitis om? @ -Pancreatitis Acute, or Chronic, or Acute on Chronic? @ -Acute Uncomplicated (without systemic symptoms) or Complicated (systemic symptoms)? @ -Complicated Side effects of treatment? @ -No Exacerbation, Progression, or Severe Exacerbation? @ -No Poses a threat to life or bodily function? How? (Chest pain, [place], [place], pneumonia, PE, COPD, DKA, ARF, appy, cholecystitis, CVA, Diverticulitis, Homicidal, Suicidal, threat to staff... and all critical care pts) @ -No - Lab Data Result diagrams: 09/17/24 14:32 09/17/24 14:32 Lab Results 09/17/24 09/17/24 09/17/24 Range/Units 14:32 14:32 14:32 WBC 9.06 (4.50-10.00) 10*3/uL RBC 4.43 (4.10-5.20) 10*6/uL Hgb 12.8 (12.0-15.0) g/dL Hct 37.2 (37.2-46.3) % MCV 84.0 (80.0-97.0) fL MCH 28.9 (27.0-32.0) pg MCHC 34.4 (32.0-37.0) g/dL Plt Count 458 H (140-440) 10*3/uL MPV 8.9 L (9.5-12.2) fL Immature Gran % (Auto) 0.1 % Neutrophils % 44.1 % Lymphocytes % 41.5 % Monocytes % 9.3 % Eosinophils % 3.2 % Basophils % 1.8 % Immature Gran # 0.01 (0.00-0.04) 10*3/uL Neutrophils # 4.00 (1.80-7.70) 10*3/uL Lymphocytes # 3.76 (0.90-5.00) 10*3/uL Monocytes # 0.84 (0.20-1.00) 10*3/uL Eosinophils # 0.29 (0.04-0.35) 10*3/uL Basophils # 0.16 H (0.00-0.10) 10*3/uL Sodium 139 (137-145) mmol/L Potassium 4.5 (3.5-5.1) mmol/L Chloride 104 (98-107) mmol/L Carbon Dioxide 25 (22-30) mmol/L Anion Gap 10 mmol/L BUN 20 H (7-17) mg/dL Creatinine 0.75 (0.52-1.04) mg/dL Est GFR (CKD-EPI)AfAm >90 (>60 ml/min/1.73 sqM) Est GFR (CKD-EPI)NonAf 87 (>60 ml/min/1.73 sqM) Glucose 95 (74-99) mg/dL Plasma Lactic Acid Noman 1.0 (0.7-2.0) mmol/L Calcium 9.5 (8.4-10.2) mg/dL Total Bilirubin 0.3 (0.2-1.3) mg/dL AST 28 (14-36) U/L ALT 30 (4-34) U/L Alkaline Phosphatase 56 (38-126) U/L Total Protein 6.6 (6.3-8.2) g/dL Albumin 4.3 (3.5-5.0) g/dL Amylase 48 (30-110) U/L Lipase 1026 H (23-300) U/L Disposition Clinical Impression: Pancreatitis Disposition: HOME SELF-CARE Condition: Good Instructions (If sedation given, give patient instructions): Pancreatitis (ED) Additional Instructions: Patient should be on clear liquid diets for 2 days and then moved to a full liquid diet and patient should follow-up with Dr. Chowdhury in 2 days Prescriptions: HYDROcodone/APAP 5-325MG [[place] 5-325] 1 tab PO Q6HR PRN 3 Days #12 tab PRN Reason: Pain Is patient prescribed a controlled substance at d/c from ED?: Yes Referrals: Charlie Chowdhury MD [Primary Care Provider] - 1-2 days Time of Disposition: 17:58
[2024-09-17 18:33] VITALS: BP 144/94; PULSE 74; RESP 20; TEMP 97.6
== END 2024-09-17 18:33 | disposition home or self-care (01) ==
LOC: EC 14:01
DX: K85.90 Acute pancreatitis without necrosis or infection, unspecified (principal); Z87.891 Personal history of nicotine dependence; Z88.5 Allergy status to narcotic agent; Z88.8 Allergy status to other drugs, medicaments and biological substances
CPT/HCPCS: 36415; 80053; 82150; 83605; 83690; 85025; 76705; 74177; 99284; 96374; 96375; J1885; J1171; Q9967